=== PATIENT | female | born 1995 | race African-American/Black ===

== ENCOUNTER 2017-09-12 20:51 | Emergency (ER) | payer SELFPAY | END 2017-09-12 21:40 | disposition home or self-care (01) | LOC: NAV ERS 20:51 | DX: H10.33 Unspecified acute conjunctivitis, bilateral (principal); I10 Essential (primary) hypertension; F17.210 Nicotine dependence, cigarettes, uncomplicated | CPT/HCPCS: 99282 ==

== ENCOUNTER 2019-05-22 08:06 | Emergency (ER) | payer SELFPAY | END 2019-05-22 09:44 | disposition home or self-care (01) | LOC: NAV ERS 08:06 | DX: H01.003 Unspecified blepharitis right eye, unspecified eyelid (principal); F17.210 Nicotine dependence, cigarettes, uncomplicated | CPT/HCPCS: 99283 ==

== ENCOUNTER 2023-07-23 14:52 | Emergency (ER) | payer SELFPAY | END 2023-07-23 15:33 | disposition home or self-care (01) | LOC: NAV ERS 14:52 | DX: J11.1 Influenza due to unidentified influenza virus with other respiratory manifestations (principal); F17.210 Nicotine dependence, cigarettes, uncomplicated | CPT/HCPCS: 99283 ==